=== PATIENT | male | born 1975 | race Two or more races ===

== ENCOUNTER 2016-06-12 17:50 | Emergency (ER) | payer BC ==
[~2016-06-12] VITALS: Ht 172.7 cm; Wt 82.1 kg
[~2016-06-12 17:50] MED LIST: ASPERCREME101 TP; ASPIR 8181 MG PO; CIPRO500 MG PO; COLACE100 MG PO; GLU500 PO; LAC PO; NORCO1 TA2 PO; ZOC10 PO
[2016-06-12 18:00] VITALS: BP 135/81
== END 2016-06-12 18:28 | disposition left against medical advice (07) ==
LOC: ED 17:50
DX: Z53.21 Procedure and treatment not carried out due to patient leaving prior to being seen by health care provider (principal)